=== PATIENT | male | born 1970 | race Hispanic/Latino ===

== ENCOUNTER 2020-04-19 05:59 | Day surgery (SDC) | payer OTHER ==
[2020-04-16 09:48] LABS: BASOPHILS % (AUTO) 0.6 % (0.0-5.0); EOSINOPHILS % (AUTO) 1.1 % (0.0-8.0); HEMATOCRIT 46.5 % (42-54); LYMPHOCYTES % (AUTO) 28.9 % (21.0-51.0); MEAN CORPUSCULAR HEMOGLOBIN 28.3 pg (27.0-33.0); MEAN CORPUSCULAR HGB CONC 33.8 g/dL (32.0-36.0); MEAN CORPUSCULAR VOLUME 83.8 fL (79-99); MONOCYTES % (AUTO) 5.9 % (3.0-13.0); NEUTROPHILS % (AUTO) 62.7 % (40.0-77.0); PLATELET COUNT (AUTO) 236 K/uL (130-400); RED BLOOD CELL COUNT(AUTO) 5.55 MIL/uL (4.50-6.20); RED CELL DISTRIBUTION WIDTH 12.7 % (11.0-15.5); WHITE BLOOD COUNT (AUTO) 7.9 K/uL (4.8-10.8)
[2020-04-16 09:56] LABS: CREATININE 0.9 mg/dL (0.5-1.5); POTASSIUM 4.3 mmol/L (3.5-5.1)
[2020-04-18 11:31] VITALS: BP 135/71
[~2020-04-19] VITALS: Ht 175.3 cm; Wt 93.1 kg
[2020-04-19] VITALS (16 sets, daily range): BP systolic 95–124; BP diastolic 53–74
[~2020-04-19 05:59] MED LIST: ACET-2743 PO; LACTATED RINGERS 1000ML 1,000 ML IV SCH; MELO-108 PO; TRAM50TA4 PO
[2020-04-19] MEDS ORDERED: CEFAZOLIN SODIUM 1 GM VIAL IVP SCH (06:00)
--- NOTE | 2020-04-19 06:10 | NUR ---
PREOP PT ARRIVED AMBULATORY IN NO DISTRESS. PT LEFT KNEE WITH MILD EDEMA AND PAIN. PT ORIENTED TO ROOM AND CALL LIGHT. WILL CONTINUE TO MONITOR
[2020-04-19] MEDS ORDERED: BUPIVACAINE/PF 0.5% 30ML VIAL ONE (07:15)
[2020-04-19] MEDS ORDERED: PROPOFOL 10 MG/ML 20ML VIAL IV ONE (07:25)
[2020-04-19] MEDS ORDERED: DEXAMETHASONE SOD PHOSPHATE 10MG/ML 1ML VIAL ONE (07:25)
[2020-04-19] MEDS ORDERED: MIDAZOLAM HCL 1 MG/ML 2ML VIAL ONE (07:25)
[2020-04-19] MEDS ORDERED: FENTANYL CITRATE PF 50 MCG/1 ML 2ML VIAL ONE (07:25)
[2020-04-19] MEDS ORDERED: ONDANSETRON HCL 4 MG/2 ML VIAL ONE (07:25)
[2020-04-19] MEDS ORDERED: LIDOCAINE PF 2% 5ML ABBOJECT ONE (07:25)
[2020-04-19] MEDS ORDERED: MEPERIDINE-PF 25 MG/ML SYG ONE ×2 (07:27→09:10)
[2020-04-19] MEDS ORDERED: KETOROLAC TROMETHAMINE 30MG/ML ONE ×2 (07:27→09:10)
[2020-04-19] MEDS ORDERED: SUCCINYLCHOLINE CHLORIDE 20 MG/ML 10 ML VIAL ONE (07:43)
[2020-04-19] MEDS ORDERED: BUPIVACAINE/EPI/PF 0.5% 30ML VIAL IJ ONE (08:08)
--- NOTE | 2020-04-19 09:45 | NUR ---
patient arrived via stretcher by mona carreon rn. patient [id number], vital signsstable. denies any pain at this time. esequiel wrap to left knee dry/intact.
--- NOTE | 2020-04-19 10:20 | NUR ---
patient discharged from hospital via wheelchair, provided patient with crutches to take home. patient assisted into private vehicle driven by spouse.
== END 2020-04-19 10:20 | disposition home or self-care (01) ==
LOC: DAH 05:59
PROVIDERS: ATTEND Orthopaedic Surgery
DX: S83.242A Other tear of medial meniscus, current injury, left knee, initial encounter (principal); Z20.828 Contact with and (suspected) exposure to other viral communicable diseases; M22.42 Chondromalacia patellae, left knee; E66.3 Overweight; Z68.29 Body mass index [BMI] 29.0-29.9, adult; X58.XXXA Exposure to other specified factors, initial encounter; Y99.0 Civilian activity done for income or pay
CPT/HCPCS: 29881; 36415; 80048; 85025; A4215; A4216; A4221; A4222; A4223 ×2; A4606 ×2; A4649 ×3; A4663; A4930; A6223; A6260; C9803; J0330; J0690; J1100; J1885 ×2; J2001; J2175 ×2; J2250; J2405; J2704; J3010; J3490 ×2; J7120; U0003